=== PATIENT | male | born 1965 | race Caucasian/White ===

== ENCOUNTER 2021-05-25 10:30 | Inpatient (IN) | payer OTHER ==
--- NOTE | 2021-05-25 10:56 | ED ---
Arrhythmia/Palpitations HPI - General Chief Complaint: Arrhythmia/Palpitations Stated Complaint: AFIB Source: patient, family Mode of arrival: ambulatory Limitations: no limitations - History of Present Illness Initial Comments: 55-year-old previously healthy male presents to the emergency department from his primary care office. Dr. Jasso called to say that the patient was coming in to his office for evaluation of ED when patient was found to be in afib with rvr. Patient denies previous history of cardiac disease. Had a full cardiac workup by his primary care physician approximately 5 years ago and had normal results. He denies having any chest pain or palpitations. No recent illnesses. Patient not on any medications. No contraindications to heparinization. No o ther alleviating, precipitating or modifying factors - Related Data Home Medications Medication Instructions Recorded Confirmed Pantoprazole [Protonix] 40 mg PO DAILY 05/25/21 05/25/21 Allergies Allergy/AdvReac Type Severity Reaction Status Date / Time suture Allergy Unknown Verified 05/25/21 11:58 Review of Systems ROS Statement: Those systems with pertinent positive or pertinent negative responses have been documented in the HPI. ROS Other: All systems not noted in ROS Statement are negative. Past Medical History Past Medical History: GERD/Reflux History of Any Multi-Drug Resistant Organisms: None Reported Past Surgical History: Appendectomy, Hernia Repair Past Psychological History: No Psychological Hx Reported Smoking Status: Current every day smoker Past Alcohol Use History: Occasional Past Drug Use History: None Reported General Exam Limitations: no limitations Course Vital Signs 05/25/21 05/25/21 05/25/21 10:31 11:55 13:03 Temperature 97.9 F Pulse Rate 90 125 H 117 H Respiratory 18 18 18 Rate Blood Pressure 132/84 121/85 126/93 O2 Sat by Pulse 100 95 Oximetry EKG Findings - EKG Comments: EKG Findings:: EKG demonstrates A. fib with a rate of 138. QRS 88. QTC of 359. No acute ST segment elevations or depressions concerning for ischemic changes Medical Decision Making - Medical Decision Making Upon arrival patient is placed in room 5. A thorough history and physical exam was performed. Patient's heart rate found to be in the 140s. IV access established laboratory studies were conducted. Covid is negative. Chest x-ray demonstrates no acute process. Patient is started on a Cardizem and heparin drip. Will be admitted to Dr. Romero. Patient awaiting a bed on the floor in stable condition - Lab Data Result diagrams: 05/25/21 10:55 05/25/21 10:55 Lab Results 05/25/21 05/25/21 05/25/21 Range/Units 10:55 10:55 10:55 WBC 7.9 (3.8-10.6) k/uL RBC 4.99 (4.30-5.90) m/uL Hgb 16.1 (13.0-17.5) gm/dL Hct 46.9 (39.0-53.0) % MCV 94.0 (80.0-100.0) fL MCH 32.3 (25.0-35.0) pg MCHC 34.4 (31.0-37.0) g/dL RDW 12.0 (11.5-15.5) % Plt Count 308 (150-450) k/uL MPV 7.2 Neutrophils % 39 % Lymphocytes % 46 % Monocytes % 7 % Eosinophils % 3 % Basophils % 1 % Neutrophils # 3.1 (1.3-7.7) k/uL Lymphocytes # 3.6 (1.0-4.8) k/uL Monocytes # 0.6 (0-1.0) k/uL Eosinophils # 0.2 (0-0.7) k/uL Basophils # 0.1 (0-0.2) k/uL PT 10.5 (9.0-12.0) sec INR 1.0 (<1.2) APTT 25.1 (22.0-30.0) sec Sodium 139 (137-145) mmol/L Potassium 4.7 (3.5-5.1) mmol/L Chloride 108 H (98-107) mmol/L Carbon Dioxide 22 (22-30) mmol/L Anion Gap 9 mmol/L BUN 15 (9-20) mg/dL Creatinine 0.79 (0.66-1.25) mg/dL Est GFR (CKD-EPI)AfAm >90 (>60 ml/min/1.73 sqM) Est GFR (CKD-EPI)NonAf >90 (>60 ml/min/1.73 sqM) Glucose 108 H (74-99) mg/dL Calcium 9.7 (8.4-10.2) mg/dL Magnesium 2.0 (1.6-2.3) mg/dL Total Bilirubin 1.1 (0.2-1.3) mg/dL AST 29 (17-59) U/L ALT 37 (4-49) U/L Alkaline Phosphatase 80 (38-126) U/L Troponin I (0.000-0.034) ng/mL Total Protein 7.7 (6.3-8.2) g/dL Albumin 4.6 (3.5-5.0) g/dL Coronavirus (PCR) (Not Detectd) 05/25/21 05/25/21 Range/Units 10:55 11:55 WBC (3.8-10.6) k/uL RBC (4.30-5.90) m/uL Hgb (13.0-17.5) gm/dL Hct (39.0-53.0) % MCV (80.0-100.0) fL MCH (25.0-35.0) pg MCHC (31.0-37.0) g/dL RDW (11.5-15.5) % Plt Count (150-450) k/uL MPV Neutrophils % % Lymphocytes % % Monocytes % % Eosinophils % % Basophils % % Neutrophils # (1.3-7.7) k/uL Lymphocytes # (1.0-4.8) k/uL Monocytes # (0-1.0) k/uL Eosinophils # (0-0.7) k/uL Basophils # (0-0.2) k/uL PT (9.0-12.0) sec INR (<1.2) APTT (22.0-30.0) sec Sodium (137-145) mmol/L Potassium (3.5-5.1) mmol/L Chloride (98-107) mmol/L Carbon Dioxide (22-30) mmol/L Anion Gap mmol/L BUN (9-20) mg/dL Creatinine (0.66-1.25) mg/dL Est GFR (CKD-EPI)AfAm (>60 ml/min/1.73 sqM) Est GFR (CKD-EPI)NonAf (>60 ml/min/1.73 sqM) Glucose (74-99) mg/dL Calcium (8.4-10.2) mg/dL Magnesium (1.6-2.3) mg/dL Total Bilirubin (0.2-1.3) mg/dL AST (17-59) U/L ALT (4-49) U/L Alkaline Phosphatase (38-126) U/L Troponin I <0.012 (0.000-0.034) ng/mL Total Protein (6.3-8.2) g/dL Albumin (3.5-5.0) g/dL Coronavirus (PCR) Not Detected (Not Detectd) Disposition Clinical Impression: New onset a-fib, Atrial fibrillation with RVR Disposition: ADMITTED IP TO THIS HOSP Condition: Stable Is patient prescribed a controlled substance at d/c from ED?: No Decision to Admit Reason: Admit from EC Decision Date: 05/25/21 Decision Time: 12:42
[2021-05-25 11:12] LABS: Basophils # (A) 0.1 k/uL (0-0.2); Basophils % (A) 1 %; Eosinophils # (A) 0.2 k/uL (0-0.7); Eosinophils % (A) 3 %; HCT 46.9 % (39.0-53.0); HGB 16.1 gm/dL (13.0-17.5); Lymphocytes # (A) 3.6 k/uL (1.0-4.8); Lymphocytes % (A) 46 %; MCH 32.3 pg (25.0-35.0); MCHC 34.4 g/dL (31.0-37.0); Mean Platelet Volume 7.2; Monocytes # (A) 0.6 k/uL (0-1.0); Monocytes % (A) 7 %; Neutrophils # (A) 3.1 k/uL (1.3-7.7); Neutrophils % (A) 39 %; Platelet Count 308 k/uL (150-450); RBC 4.99 m/uL (4.30-5.90); WBC 7.9 k/uL (3.8-10.6)
[2021-05-25 11:25] LABS: Partial Thromboplastin Time 25.1 sec (22.0-30.0); Prothrombin Time 10.5 sec (9.0-12.0)
[2021-05-25 11:29] LABS: ALT 37 U/L (4-49); AST 29 U/L (17-59); African American GFR (CKD) >90 (>60 ml/min/1.73 sqM); Albumin 4.6 g/dL (3.5-5.0); Alkaline Phosphatase 80 U/L (38-126); Anion Gap 9 mmol/L; Blood Urea Nitrogen 15 mg/dL (9-20); Calcium 9.7 mg/dL (8.4-10.2); Carbon Dioxide 22 mmol/L (22-30); Chloride 108 mmol/L (98-107); Glucose 108 mg/dL (74-99); Non-African American GFR(CKD) >90 (>60 ml/min/1.73 sqM); Potassium 4.7 mmol/L (3.5-5.1); Sodium 139 mmol/L (137-145); Total Bilirubin 1.1 mg/dL (0.2-1.3); Total Protein 7.7 g/dL (6.3-8.2)
[2021-05-25] MEDS ORDERED: HEPARIN SODIUM 1,000 UN/ML (10ML VL) IV ONE (11:32)
[2021-05-25] MEDS ORDERED: DILTIAZEM DRIP BOLUS FROM BAG 1 MG SOLN IV ONE (11:32)
--- NOTE | 2021-05-25 11:37 | XR ---
EXAMINATION TYPE: XR chest 2V DATE OF EXAM: 05/25/2021 COMPARISON: NONE HISTORY: Dysrhythmia TECHNIQUE: Frontal and lateral views of the chest are obtained. FINDINGS: There is no focal air space opacity, pleural effusion, or pneumothorax seen. The cardiac silhouette size is within normal limits. There are overlying leads. The osseous structures are intac t, there is thoracic spondylosis. IMPRESSION: No acute cardiopulmonary process.
[2021-05-25] MEDS ORDERED: DILTIAZEM 125 MG in SODIUM CHLORIDE 0.9% 100 ML IV SCH (11:45)
[2021-05-25] MEDS: HEPARIN SOD,PORK IN 0.45% NACL 25,000 UNIT in 0.45% NACL 1 250ML.BAG IV SCH (11:46)
[2021-05-25] MEDS ORDERED: NALOXONE 0.4 MG/ML 1 ML VIAL IV PRN (12:42)
[2021-05-25] MEDS: METOPROLOL TARTRATE 25 MG TAB PO SCH ×2 (14:49→21:02)
[2021-05-25 16:02] VITALS: RESP 16
[2021-05-25 21:00] VITALS: TEMP 98
[2021-05-25] MEDS: HEPARIN SODIUM 1,000 UN/ML (10ML VL) IV PRN (21:02)
[2021-05-26 04:18] LABS: Basophils # (A) 0.1 k/uL (0-0.2); Basophils % (A) 1 %; Eosinophils # (A) 0.4 k/uL (0-0.7); Eosinophils % (A) 4 %; HCT 44.2 % (39.0-53.0); HGB 14.8 gm/dL (13.0-17.5); Lymphocytes # (A) 4.6 k/uL (1.0-4.8); Lymphocytes % (A) 53 %; MCHC 33.6 g/dL (31.0-37.0); MCV 95.2 fL (80.0-100.0); Mean Platelet Volume 7.3; Monocytes # (A) 0.6 k/uL (0-1.0); Monocytes % (A) 6 %; Neutrophils # (A) 2.9 k/uL (1.3-7.7); Neutrophils % (A) 33 %; Platelet Count 262 k/uL (150-450); RBC 4.64 m/uL (4.30-5.90); RDW 12.1 % (11.5-15.5); WBC 8.8 k/uL (3.8-10.6)
[2021-05-26 04:25] LABS: Partial Thromboplastin Time 40.1 sec (22.0-30.0); Prothrombin Time 10.8 sec (9.0-12.0)
[2021-05-26 04:31] VITALS: PULSE 71
[2021-05-26] MEDS: HEPARIN SODIUM 1,000 UN/ML (10ML VL) IV PRN (04:31)
[2021-05-26] MEDS: HEPARIN SOD,PORK IN 0.45% NACL 25,000 UNIT in 0.45% NACL 1 250ML.BAG IV SCH (04:33)
[2021-05-26 04:42] LABS: African American GFR (CKD) >90 (>60 ml/min/1.73 sqM); Anion Gap 6 mmol/L; Blood Urea Nitrogen 20 mg/dL (9-20); Calcium 8.8 mg/dL (8.4-10.2); Carbon Dioxide 27 mmol/L (22-30); Chloride 104 mmol/L (98-107); Glucose 113 mg/dL (74-99); Non-African American GFR(CKD) >90 (>60 ml/min/1.73 sqM); Sodium 137 mmol/L (137-145)
[2021-05-26 05:14] LABS: Potassium 4.2 mmol/L (3.5-5.1)
--- NOTE | 2021-05-26 07:34 | ECHOF ---
Referral Reason:LV function MEASUREMENTS -------- HEIGHT: 182.9 cm WEIGHT: 97.5 kg BP: 126/93 RVIDd: 2.9 cm (< 3.3) IVSd: 1.0 cm (0.6 - 1.1) LVIDd: 5.0 cm (3.9 - 5.3) LVPWd: 1.1 cm (0.6 - 1.1) IVSs: 1.7 cm LVIDs: 3.4 cm LVPWs: 1.7 cm LA Diam: 3.5 cm (2.7 - 3.8) Ao Diam: 4.2 cm (2.0 - 3.7) AV Cusp: 2.4 cm (1.5 - 2.6) MV EXCURSION: 13.883 mm (> 18.000) MV EF SLOPE: 78 mm/s (70 - 150) EPSS: 0.7 cm FINDINGS -------- Atrial fibrillation. This was a technically adequate study. The left ventricular size is normal. There is borderline concentric left ventricular hypertrophy. Overall left ventricular systolic function is low-normal with, an EF between 50 - 55 %. The right ventricle is normal in size. The left atrium is normal in size. The right atrium is normal in size. Interatrial and interventricular septum intact. The aortic valve is trileaflet, and appears structurally normal. No aortic stenosis or regurgitation. The mitral valve is normal. There is trace mitral regurgitation. The tricuspid valve appears structurally normal. The pulmonic valve was not well visualized. The aortic root is mildy dilated. Normal inferior vena cava with normal inspiratory collapse consistent with estimated right atrial pre ssure of 5 mmHg. There is no pericardial effusion. CONCLUSIONS -------- 1. There is borderline concentric left ventricular hypertrophy. 2. Overall left ventricular systolic function is low-normal with, an EF between 50 - 55 %. 3. The aortic valve is trileaflet, and appears structurally normal. No aortic stenosis or regurgitati on. 4. There is trace mitral regurgitation. 5. The aortic root is mildy dilated. 6. There is no pericardial effusion. [employer] ARCHITECT: Shea Cornelius RD
[2021-05-26] MEDS: METOPROLOL TARTRATE 25 MG TAB PO SCH (08:46)
[2021-05-26 08:54] VITALS: BP 121/88
[2021-05-26] MEDS ORDERED: APIXABAN 5 MG TAB PO SCH (10:15)
--- NOTE | 2021-05-26 11:16 | P.CRDCN ---
History of Present Illness Consult date: 05/25/21 History of present illness: HISTORY OF PRESENT ILLNESS: This is a 55 year old male with no significant past medical history. Patient does not follow with a welt wheeler. We have been asked to see the patient in consultation for A. fib with RVR. Patient examined at the bedside. Patient states he was at an appointment with Dr. Jasso yesterday to establish care and he had an EKG performed revealing afib. The patient does not have a history of a fib. He was sent to the hospital for evaluation. He was started on a cardizem drip and subsequently converted to sinus mechanism. He denies chest pain or pressure. Denies SOB. Denies palpitations. Patient reports frequent alcohol use and states he drinks approximately 1 pint per day * EKG reveals A. fib with RVR * Chest xray negative for acute process * Laboratory data: WBC 7.9. Hemoglobin 16.1. Platelet count 308. Sodium 139. Potassium 4.7. BUN 15. Creatinine 0.79. Magnesium 2.0. Troponin negative 1. * Current home cardiac medications include none * Echocardiogram completed revealing ejection fraction 50-55% with trace MR REVIEW OF SYSTEMS: At the time of my exam: CONSTITUTIONAL: Denies fever or chills. HEENT: Denies blurred vision, vision changes, or eye pain. Denies hemoptysis CARDIOVASCULAR: Denies chest pain. Denies orthopnea. Denies PND. Denies palpitations RESPIRATORY: Denies shortness of breath. GASTROINTESTINAL: Denies abdominal pain. Denies nausea or vomiting. HEMATOLOGIC: Denies bleeding disorders. GENITOURINARY: Denies any blood in urine. SKIN: Denies pruitis. Denies rash. PHYSICAL EXAM: VITAL SIGNS: Reviewed. GENERAL: Well-developed in no acute distress. HEENT: Head is normocephalic. Pupils are equal, round. Sclerae anicteric. Mucous membranes of the mouth are moist. Neck supple. No JVD or thyromegaly LUNGS: Respirations even and unlabored. Lungs essentially clear to auscultation bilaterally. HEART: Regular rate and rhythm. S1 and S2 heard. ABDOMEN: Soft. Nondistended. Nontender. EXTREMITIES: Normal range of motion. No clubbing or cyanosis. Peripheral pulses intact. No lower extremity edema NEUROLOGIC: Awake and alert. Oriented x 3. ASSESSMENT: New-onset paroxysmal A. fib with RVR Nicotine dependence Alcohol abuse PLAN: Begin Eliquis 5mg BID. Patient will be on anticoagulation for 6-[address] Downing He will have an event monitor placed on an outpatient basis at his follow up visit with Dr. Downing Begin metoprolol 25mg BID Smoking cessation recommended Abstinence from alcohol encouraged Patient may be discharged home today and follow up outpatient Nurse practitioner note has been reviewed by physician. Signing provider agrees with the documented findings, assessment, and plan of care. Past Medical History Past Medical History: GERD/Reflux History of Any Multi-Drug Resistant Organisms: None Reported Past Surgical History: Appendectomy, Hernia Repair Past Psychological History: No Psychological Hx Reported Smoking Status: Current every day smoker Past Alcohol Use History: Occasional Past Drug Use History: None Reported - Past Family History Father Family Medical History: Cancer Mother Family Medical History: Cancer Medications and Allergies Home Medications Medication Instructions Recorded Confirmed Type Apixaban [Eliquis] 5 mg PO BID #60 tab 05/25/21 Rx Pantoprazole [Protonix] 40 mg PO DAILY 05/25/21 05/25/21 History Metoprolol Tartrate [Lopressor] 25 mg PO BID #60 tab 05/26/21 Rx Allergies Allergy/AdvReac Type Severity Reaction Status Date / Time suture Allergy Unknown Verified 05/25/21 11:58 Physical Exam Vitals: Vital Signs Temp Pulse Resp BP Pulse Ox 05/25/21 13:03 117 H 18 126/93 05/25/21 11:55 125 H 18 121/85 95 05/25/21 10:31 97.9 F 90 18 132/84 100 Intake and Output 05/24/21 05/25/21 05/25/21 22:59 06:59 14:59 Other: Weight 97.522 kg Results 05/26/21 03:58 05/26/21 03:58 Cardiac Enzymes 05/25/21 05/25/21 Range/Units 10:55 10:55 AST 29 (17-59) U/L Troponin I <0.012 (0.000-0.034) ng/mL Coagulation 05/25/21 Range/Units 10:55 PT 10.5 (9.0-12.0) sec APTT 25.1 (22.0-30.0) sec CBC 05/25/21 Range/Units 10:55 WBC 7.9 (3.8-10.6) k/uL RBC 4.99 (4.30-5.90) m/uL Hgb 16.1 (13.0-17.5) gm/dL Hct 46.9 (39.0-53.0) % Plt Count 308 (150-450) k/uL Comprehensive Metabolic Panel 05/25/21 Range/Units 10:55 Sodium 139 (137-145) mmol/L Potassium 4.7 (3.5-5.1) mmol/L Chloride 108 H (98-107) mmol/L Carbon Dioxide 22 (22-30) mmol/L BUN 15 (9-20) mg/dL Creatinine 0.79 (0.66-1.25) mg/dL Glucose 108 H (74-99) mg/dL Calcium 9.7 (8.4-10.2) mg/dL AST 29 (17-59) U/L ALT 37 (4-49) U/L Alkaline Phosphatase 80 (38-126) U/L Total Protein 7.7 (6.3-8.2) g/dL Albumin 4.6 (3.5-5.0) g/dL Current Medications Generic Name Dose Route Start Last Admin Trade Name Freq PRN Reason Stop Dose Admin Heparin Sodium (Porcine) 0 unit 05/25/21 11:32 Heparin Sodium 1,000 Un/Ml (10ml Vl) IV PER PROTOCOL PRN Low PTT Protocol Diltiazem HCl 125 mg/ Sodium 125 mls @ 5 mls/hr 05/25/21 11:45 05/25/21 11:48 Chloride IV 5 mg/hr .Q24H DANIELLE 5 mls/hr Administration 5 MG/HR Heparin Sodium/Sodium Chloride 250 mls @ 10 mls/hr 05/25/21 11:45 05/25/21 11:46 25,000 unit/ Sodium Chloride IV 10.254 units/kg/hr .Q24H DANIELLE 10 mls/hr Administration Protocol 10.254 UNITS/KG/HR Metoprolol Tartrate 25 mg 05/25/21 13:15 Metoprolol Tartrate 25 Mg Tab PO BID DANIELLE Naloxone HCl 0.2 mg 05/25/21 12:42 Naloxone 0.4 Mg/Ml 1 Ml Vial IV Q2M PRN Opioid Reversal Intake and Output 05/24/21 05/25/21 05/25/21 22:59 06:59 14:59 Other: Weight 97.522 kg Patient Weight 05/26/21 06:59 Weight 97.522 kg 05/25/21 10:55 05/25/21 10:55
--- NOTE | 2021-05-27 11:49 | P.HPIM ---
History of Present Illness H&P Date: 05/25/21 Chief Complaint: Atrial fibrillation with rapid ventricular response. HISTORY OF PRESENT ILLNESS: This is a 55-year-old male with a previous medical history significant for c hronic alcohol use and dependence, chronic drug use and dependence, who presented to my office yesterday as a new patient concerned about recurrent episodes of erectile dysfunction, he was accompanied by his and his daughter and the patient was seen and evaluated the office and surprisingly he was found to have an atrial fibrillation with rapid ventricular response his heart rate was around 160 initially and dropped out 134, twelve-lead EKG was done in my office documented atrial fibrillation with rapid ventricular response, patient was sent to the emergency department at [facility] he was started on heparin drip, he was also placed on Cardizem drip, at the same time he was placed on metoprolol 25 mg orally twice every day, he was admitted to the hospital for evaluation of underlying coronary artery disease and for rate control of his atrial fibrillation and an echocardiogram for further evaluation and recommendation and a cardiology consultation was placed. REVIEW OF SYSTEMS: Constitutional: No documented fever, no chills, no night sweats. No weight change. No weakness, fatigue or lethargy. No daytime sleepiness. HEENT: No headache. No blurred vision or double vision, no loss of vision. No loss of Hearing, no ringing in the ears, no dizziness. No nasal drainage or congestion. No epistaxis. No sore throat. Lungs: No shortness of breath, occasional cough, no sputum production. No wheezing. Reports dyspnea with activity. Cardiovascular: No chest pain, no lower extremity edema. Positive for palpitations. No paroxysmal nocturnal dyspnea. No orthopnea. No lightheadedness or dizziness. No syncopal episodes. Abdominal: Reports abdominal pain. No nausea, vomiting. No diarrhea. No constipation. No bloody or tarry stools reports loss of appetite. Genitourinary: No dysuria, increased frequency, urgency. No urinary retention. Positive for erectile dysfunction. Musculoskeletal: No myalgias. No muscle weakness, no gait dysfunction, no frequent falls. No back pain. No neck pain. Integumentary: No wounds, no lesions. No rash or pruritus. No unusual bruising. No change in hair or nails. Neurologic: No aphasia. No facial droop. No change in mentation. No head injury. No headache. No paralysis. No paresthesia. Psychiatric: No depression. No anxiety. No mood swings. Endocrine: No abnormal blood sugars. No weight change. PAST MEDICAL HISTORY: Chronic alcohol use and dependence. Chronic tobacco use and dependence. GERD with esophagitis. Paroxysmal atrial fibrillation Hyperlipidemia. Hypertension and hypertensive cardiovascular disease. Erectile dysfunction. PAST SURGICAL HISTORY: Appendectomy 2019 Vasectomy 2005 Colonoscopy 2016 Left inguinal hernia repair SOCIAL HISTORY: Patient smokes about 2 pack every day assessment was 69-year-old and he drinks on a daily basis, with a chronic alcohol use and dependence, he denies any marijuana use or abuse. He lives with his family. FAMILY HISTORY: Father at age of 88 from prostate cancer had history of atrial fibrillation along with colon cancer mother at age of 82 she had a history of atrial fibrillation arthritis along with osteoporosis and hypertension patient has one brother who is alive and well and is 57-year-old patient has one sister 64-year-old twin sister alive and well and the other sister with autoimmune disorder, patient has 3 daughters. PHYSICAL EXAMINATION: General: 55-year-old white female who is laying down in bed in no apparent di stress. HEENT: Head is atraumatic, normocephalic, pupils were equal round reactive to light and recommendation, extraocular muscle movement were intact, sclera nonicteric, conjunctivae were pale, mucous membranes of the mouth are somewhat dry. Neck: Supple, no JVP, normal carotid upstroke bilaterally, no lymphadenopathy. Chest: Decreased breath sounds at the bases, few rhonchi, no extremity wheezes, no chest wall tenderness, no intercostal retractions. Heart: First heart sound is normal, second heart sound is normal irregularly irregular due to atrial fibrillation, there is systolic ejection murmur 2/6 located in the left sternal border. Abdomen: Soft, nontender, nondistended, positive bowel sounds. Extremities: There is no edema no calf tenderness DP +2 bilaterally. Neurologic examination: Patient is awake alert and oriented X3, cranial nerves II-12 appear grossly intact, muscle power were 5 out of 5 in upper extremities and 5 out of 5 in bilateral lower extremities, deep tendon reflexes normal bilaterally. ASSESSMENT AND PLAN: 1. Atrial fibrillation with rapid ventricular response. Continue patient on heparin drip, continue patient on Cardizem drip, switch the patient to oral metoprolol 25 mg orally twice every day as well as Apixaban 5 mg orally twice every day and hopefully discharge the patient the next 24 hours after obtaining echocardiogram, follow-up with cardiology as an outpatient for ruling out underlying coronary artery disease. 2. Chronic tobacco use and dependence. Smoking cessation and counseling an increased risk of CAD, CVA and malignancy. 3. Chronic alcohol use and dependence. Absence from alcohol as this may increase risk of bleeding while he is on anticoagulation. 4. Hyperlipidemia. Patient will need to have a fasting lipid panel as an outpatient. 5. Hypertension and hypertensive cardiovascular disease. Continue patient on metoprolol 25 mg orally twice every day. 6. Paroxysmal atrial fibrillation continue patient on metoprolol and Apixaban. 7. GERD. Continue patient on famotidine. 8. Admit to inpatient. Estimated length of stay 2 midnights. 9. Full code. Past Medical History Past Medical History: GERD/Reflux History of Any Multi-Drug Resistant Organisms: None Reported Past Surgical History: Appendectomy, Hernia Repair Past Anesthesia/Blood Transfusion Reactions: No Reported Reaction Smoking Status: Current every day smoker - Past Family History Father Family Medical History: Cancer Mother Family Medical History: Cancer Medications and Allergies Home Medications Medication Instructions Recorded Confirmed Type Apixaban [Eliquis] 5 mg PO BID #60 tab 05/25/21 Rx Pantoprazole [Protonix] 40 mg PO DAILY 05/25/21 05/25/21 History Metoprolol Tartrate [Lopressor] 25 mg PO BID #60 tab 05/26/21 Rx Allergies Allergy/AdvReac Type Severity Reaction Status Date / Time suture Allergy Unknown Verified 05/25/21 11:58 Physical Exam Vitals: Vital Signs Temp Pulse Pulse Resp BP BP Pulse Ox 05/25/21 15:55 97.9 F 69 16 128/82 95 05/25/21 14:50 112 H 18 122/89 05/25/21 13:45 69 16 05/25/21 13:03 117 H 18 126/93 05/25/21 11:55 125 H 18 121/85 95 05/25/21 10:31 97.9 F 90 18 132/84 100 Intake and Output 05/25/21 05/25/21 05/25/21 06:59 14:59 22:59 Intake Total 600 Balance 600 Intake: Oral 600 Other: Voiding Method Toilet Urinal # Voids 1 Weight 97.522 kg 97.522 kg Results CBC & Chem 7: 05/26/21 03:58 05/26/21 03:58 Labs: Abnormal Lab Results - Last 24 Hours (Table) 05/25/21 Range/Units 10:55 Chloride 108 H (98-107) mmol/L Glucose 108 H (74-99) mg/dL Thrombosis Risk Factor Assmnt - Choose All That Apply Each Factor Represents 1 point: Age 41-60 years Thrombosis Risk Factor Assessment Total Risk Factor Score: 1 Thrombosis Risk Factor Assessment Level: Low Risk
--- NOTE | 2021-05-29 07:36 | P.DS ---
Providers Date of admission: 05/25/21 12:42 Expected date of discharge: 05/26/21 Attending physician: True Jasso Consults: 05/25/21 12:43 Consult Physician Urgent Consulting Provider: [facility] Consult Reason/Comments: new onset afib with rvr Do you want consulting provider notified?: Yes Primary care physician: True Jasso Hospital Course: HISTORY OF PRESENT ILLNESS: This is a 55-year-old male with a previous medical history significant for chronic alcohol use and dependence, chronic drug use and dependence, who presented to my office yesterday as a new patient concerned about recurrent episodes of erectile dysfunction, he was accompanied by his and his daughter and the patient was seen and evaluated the office and surprisingly he was found to have an atrial fibrillation with rapid ventricular response his heart rate was around 160 initially and dropped out 134, twelve-lead EKG was done in my office documented atrial fibrillation with rapid ventricular response, patient was sent to the emergency department at [facility] he was started on heparin drip, he was also placed on Cardizem drip, at the same time he was placed on metoprolol 25 mg orally twice every day, he was admitted to the hospital for evaluation of underlying coronary artery disease and for rate control of his atrial fibrillation and an echocardiogram for further kg luation and recommendation and a cardiology consultation was placed. 05/26: Patient has been seen by cardiology and started patient on eliquis for 6- 12 weeks, event monitor as an outpatient and started on metoprolol 25 mg twice daily. Patient has converted to sinus rhythm and denies having any chest pain, lightheadedness or dizziness, no palpitations, no shortness of breath. Patient will be discharged home today in stable condition. Echocardiogram reveals EF of 50-55%, trace mitral regurgitation, aortic root is mildly dilated. DISCHARGE DIAGNOSES 1. Atrial fibrillation with rapid ventricular response. 2. Chronic tobacco use and dependence. Smoking cessation and counseling an increased risk of CAD, CVA and malignancy. 3. Chronic alcohol use and dependence. Absence from alcohol as this may increase risk of bleeding while he is on anticoagulation. 4. Hyperlipidemia. 5. Hypertension and hypertensive cardiovascular disease. 6. Paroxysmal atrial fibrillation 7. GERD. DISCHARGE PLAN Home Greater than 35 minutes was utilized and coordinating patient's discharge. Impression and plan of care have been directed as dictated by the signing physician. Ellen Convery nurse practitioner acting as scribe for signing physician. Patient Condition at Discharge: Good Plan - Discharge Summary Discharge Rx Participant: No New Discharge Prescriptions: New Apixaban [Eliquis] 5 mg PO BID #60 tab Metoprolol Tartrate [Lopressor] 25 mg PO BID #60 tab Continue Pantoprazole [Protonix] 40 mg PO DAILY Discharge Medication List Apixaban [Eliquis] 5 mg PO BID #60 tab 05/25/21 [Rx] Pantoprazole [Protonix] 40 mg PO DAILY 05/25/21 [History] Metoprolol Tartrate [Lopressor] 25 mg PO BID #60 tab 05/26/21 [Rx] Follow up Appointment(s)/Referral(s): Dannie Downing MD [STAFF PHYSICIAN] - 06/06/21 2:00 pm ([facility]) True Jasso MD [Primary Care Provider] - 1 Week Patient Instructions/Handouts: A-fib (Atrial Fibrillation) (DC) Activity/Diet/Wound Care/Special Instructions: Patient will have a free 30 day coupon applied and the $10 copay card for Eliquis. Discharge Disposition: HOME SELF-CARE
== END 2021-05-26 11:09 | disposition home or self-care (01) | DRG 310 ==
LOC: EC 10:30 → 3SCARD 12:42
PROVIDERS: ADMIT Internal Medicine; ATTEND Internal Medicine
DX: I48.0 Paroxysmal atrial fibrillation (principal); Z71.6 Tobacco abuse counseling; E78.5 Hyperlipidemia, unspecified; I25.10 Atherosclerotic heart disease of native coronary artery without angina pectoris; F17.200 Nicotine dependence, unspecified, uncomplicated; Z20.822 Contact with and (suspected) exposure to COVID-19; F10.20 Alcohol dependence, uncomplicated; I11.0 Hypertensive heart disease with heart failure; N52.9 Male erectile dysfunction, unspecified; M81.0 Age-related osteoporosis without current pathological fracture; I34.0 Nonrheumatic mitral (valve) insufficiency; K21.9 Gastro-esophageal reflux disease without esophagitis; Z79.01 Long term (current) use of anticoagulants; Z79.899 Other long term (current) drug therapy; Z80.0 Family history of malignant neoplasm of digestive organs; Z80.42 Family history of malignant neoplasm of prostate; Z82.49 Family history of ischemic heart disease and other diseases of the circulatory system; Z82.62 Family history of osteoporosis; Z91.048 Other nonmedicinal substance allergy status; Z71.41 Alcohol abuse counseling and surveillance of alcoholic; Z87.19 Personal history of other diseases of the digestive system
CPT/HCPCS: 36415; 71046; 80048; 80053; 83735; 84443; 84484; 85025; 85610; 85730; 87635; 93005; 93306; 96374; 96375; 99285